=== PATIENT | female | born 1970 | race Caucasian/White ===

== ENCOUNTER → 2017-01-12 | Outpatient (CLI) | payer OTHER ==
--- NOTE | 2017-01-12 09:42 | RAD ---
Indication disability evaluation. Pain. No history of injury. AP and lateral views of the lumbar spine were obtained as well as a coned view targeted to the lumbosacral junction. Vertebral height alignment and disc spaces are unremarkable. No acute finding is seen. Significant degenerative changes are not apparent on plain films. IMPRESSION: Normal plain films of the lumbar spine
--- NOTE | 2017-01-12 09:45 | RAD ---
Indication disability evaluation. No history of injury. AP and lateral views of the cervical spine were obtained as well as an odontoid view. C1-C7 are identified. There is very slight disc space narrowing at C5-6. There is very minimal anterolisthesis of C4 relative to C5. The prevertebral soft tissues appear normal. Acute finding is not apparent. IMPRESSION: Minimal degenerative changes in the cervical spine. No acute finding seen
== END | disposition home or self-care (01) ==
LOC: DXRAD 08:52
PROVIDERS: ATTEND Neuromusculoskeletal Medicine, Sports Medicine
DX: Z02.71 Encounter for disability determination (principal); M47.892 Other spondylosis, cervical region
CPT/HCPCS: 72040; 72100

== ENCOUNTER → 2021-11-05 | Outpatient (CLI) | payer OTHER ==
--- NOTE | 2021-11-12 11:52 | RAD ---
Bilateral digital screening 2-D and 3-D (digital breast tomosynthesis) mammogram: Reason for examination: Routine screening. Comparison: Mammogram from 09/10/2020. Interpretation was made with the benefit of CAD. FINDINGS: Breast density: Category A. Breast tissue is almost entirely fatty. No suspicious breast mass, malignant appearing calcifications, or architectural distortion is seen. IMPRESSION: No evidence of malignancy. Assessment: BI-RADS 1. Negative. Recommendation: Routine screening mammograms. The patient will receive a letter with the results in the mail. Patient information will be entered i nto the mammography reminder system with a target recall date for the next mammogram. A reminder cee er will be generated. Electronically signed by: Lakshmi Lala MD (11/12/2021 11:50 AM) [id number]
== END ==
LOC: MAMMO 12:58
PROVIDERS: ATTEND Physician Assistant Medical
DX: Z12.31 Encounter for screening mammogram for malignant neoplasm of breast (principal)
CPT/HCPCS: 77063; 77067

== ENCOUNTER → 2021-11-11 | Outpatient (CLI) | payer OTHER ==
--- NOTE | 2021-11-11 19:25 | RAD ---
EXAM: XR HIP (WITH OR WITHOUT PELVIS) 1 VIEW 11/11/2021 5:50 PM CLINICAL INDICATION: Bilateral hip pain COMPARISON: None TECHNIQUE: AP view of the pelvis and frog-leg lateral view of the hips. FINDINGS: No acute fracture. Alignment is normal. Hip joint spaces are maintained. Pubic symphysis a nd sacroiliac joints are normal. IMPRESSION: No acute osseous abnormality or degenerative joint disease in the hips. Electronically signed by: Liseth Luna MD (11/11/2021 7:23 PM) [id number]
== END ==
LOC: RAD 17:37
PROVIDERS: ATTEND Physician Assistant
DX: M25.551 Pain in right hip (principal); M25.552 Pain in left hip
CPT/HCPCS: 73521

== ENCOUNTER → 2021-12-04 | Outpatient (CLI) | payer OTHER ==
--- NOTE | 2021-12-04 12:21 | RAD ---
EXAM: Chest, 2 views. HISTORY: Cancer screening. COMPARISON: None. FINDINGS: 2 views of the chest are obtained. There is no infiltrate, pleural effusion or pneumothorax . The heart is normal in size. IMPRESSION: No acute pulmonary finding. Electronically signed by: Tami Gutierrez MD (12/04/2021 12:19 PM) [id number]
[2021-12-04 12:57] LABS: ALBUMIN 3.5 g/dL (3.4-5.0); ALBUMIN/GLOBULIN RATIO 0.8 (1.0-1.7); C REACTIVE PROTEIN 18.8 mg/L (0-3.3); CALCIUM 8.9 mg/dL (8.5-10.1); CREATININE 0.9 mg/dL (0.6-1.0); GFR 65.8; POTASSIUM 3.7 mmol/L (3.5-5.1); TOTAL BILIRUBIN 0.2 mg/dL (0.2-1.0)
[2021-12-06 10:12] LABS: SSA ANTIBODY 0.4 AI (0.0-0.9); SSB ANTIBODY <0.2 AI (0.0-0.9)
[2021-12-06 15:08] LABS: ALBUM 3.7 g/dL (2.9-4.4); ALPHA 1 0.3 g/dL (0.0-0.4); BETA 1.2 g/dL (0.7-1.3); GAMMA 1.3 g/dL (0.4-1.8); PROTEIN TOTAL 7.5 g/dL (6.0-8.5)
== END ==
LOC: RAD 11:48
PROVIDERS: ATTEND Internal Medicine Rheumatology
DX: R70.0 Elevated erythrocyte sedimentation rate (principal); M35.00 Sjogren syndrome, unspecified; Z12.9 Encounter for screening for malignant neoplasm, site unspecified
CPT/HCPCS: 36415; 71046; 80053; 84165; 85651; 86140; 86235

== ENCOUNTER → 2021-12-26 | Outpatient (CLI) | payer OTHER, MEDICARE ==
--- NOTE | 2021-12-26 12:56 | RAD ---
EXAMINATION: CT ABDOMEN+PELVIS WO CLINICAL HISTORY: Bilateral upper quadrant abdominal pain, worse on the right. TECHNIQUE: Imaging of the abdomen and pelvis was performed without intravenous contrast using standar d technique, scanning from just above the dome of the diaphragm to the symphysis pubis. Unenhanced i maging is limited for the evaluation of some intra-abdominal and pelvic pathology. CT Dose Reduction Employed: One or more of the following individualized dose reduction techniques wer e utilized for this examination: 1. Automated exposure control 2. Adjustment of the mA and/or kV ac cording to patient size 3. Use of iterative reconstruction technique. COMPARISON: None FINDINGS: Visualized heart and lungs unremarkable. Minimally distended heterogeneously calcified gallbladder. The calcifications appear to be more relat ed to predominantly involve the bahena of the gallbladder with possible less dense intraluminal calcif ication. There is also an irregular outpouching along the anterior hepatic margin of the gallbladder fundus which demonstrates the same type of heterogeneous calcification, this is nonspecific but could represent a gallbladder diverticulum. No biliary ductal dilation. 1 cm hypodense left adrenal lesion, compatible with an adenoma. Liver, pancreas, spleen, and kidneys unremarkable. Mildly filled urinary bladder. Bilateral tubal ligation clips. Uterus and ovaries otherwise unremarka ble. Mild sigmoid diverticulosis. No dilated bowel. Appendectomy. Mild mesenteric groundglass attenuation with associated soft tissue nodules/lymph nodes in the upper abdomen, nonspecific but suggestive of mesenteric panniculitis. Mild arterial calcification without a neurysm. No evidence of acute osseous abnormality. IMPRESSION: Heterogeneously calcified gallbladder with irregular outpouching as described, nonspecific. Given the degree of calcification, further evaluation with ultrasound and/or MRI may be of little utility. Cor relate clinically and consider surgical consultation as indicated. Findings suggestive of mesenteric panniculitis. Electronically signed by: Brannon Barrientos DO (12/26/2021 12:54 PM) [id number]
== END ==
LOC: CT 08:51
PROVIDERS: ATTEND Physician Assistant Medical
DX: K57.30 Diverticulosis of large intestine without perforation or abscess without bleeding (principal); K82.8 Other specified diseases of gallbladder; R70.0 Elevated erythrocyte sedimentation rate; Z90.89 Acquired absence of other organs
CPT/HCPCS: 74176